=== PATIENT | female | born 1935 | race Caucasian/White ===

== ENCOUNTER 2020-03-08 12:01 | Inpatient (IN) | payer MEDICARE ==
[2020-03-08] MEDS ORDERED: Metoclopramide HCl 10 MG/2 ML VIAL ONE (12:40)
[2020-03-08] MEDS ORDERED: Ketorolac Tromethamine 30 MG/ML VIAL ONE (12:40)
[2020-03-08] MEDS ORDERED: Dexamethasone 10 MG/ML VIAL ONE (12:40)
[2020-03-08] MEDS ORDERED: Pantoprazole 40 MG VIAL ONE (13:19)
[2020-03-08 13:45] LABS: #Eosinphils 0.2 thou/uL (0.0-0.7); #Lymphocytes 0.8 thou/uL (1.20-3.40); #Monocytes 0.5 thou/uL (0.11-0.59); #Neutrophils 5.4 thou/uL (1.40-6.50); %Eosinophils 2.4 % (0.0-10.0); %Lymphocytes 11.8 % (21.0-51.0); %Monocytes 7.5 % (0.0-10.0); %Neutrophils 78.3 % (42.0-75.0); Hemoglobin 15.6 g/dL (12.0-16.0); Mean Corpuscular HGB CONC 34.5 g/dL (32.0-36.0); Mean Corpuscular Hemoglobin 33.4 pg (27.0-31.0); Mean Corpuscular Volume 96.7 fL (78.0-98.0); Mean Platelet Volume 8.5 fL (7.4-10.4); Platelet Count 164 thou/uL (130-400); RBC Distribution Width 12.2 % (11.5-14.5); Red Blood Cell (RBC) Count 4.67 mill/uL (4.20-5.40); White Blood Cell (WBC) Count 6.9 thou/uL (4.8-10.8)
--- NOTE | 2020-03-08 13:50 | CT ---
HEAD CT WITHOUT CONTRAST: Date: 03-08-2020 Comparison: None History: Persistent headache Technique: Axial CT imaging obtained at 5 mm intervals from the vertex to the skull base without cont rast. FINDINGS: There is a mass within the posterior fossa posteriorly on the left which is primarily isodense but de monstrates internal hyperdense components suggesting areas of calcification. This mass measures appro ximately 2.3 x 3.2 cm. It is felt to be extraaxial in nature. There is adjacent mass effect within th e left posterior fossa with slight anterior deformity and mass effect on the fourth ventricle. There is adjacent vasogenic edema within the left cerebellar hemisphere, the area of vasogenic edema adjace nt to this mass measuring approximately 2-3 cm. The imaged paranasal sinuses/mastoid air cells are well aerated. No displaced calvarial fracture. No intracranial hemorrhage. IMPRESSION: 1. Left posterior fossa mass with adjacent vasogenic edema and mass effect. This is felt to represent a posterior fossa meningioma. Neurosurgical consultation and MRI recommended. 2. Results called to Dr. Stone, 12:48 p.m. 03-08-2020. Code CR POS: LOLA
[2020-03-08 13:52] LABS: PTT 27.7 sec (22.9-36.1)
--- NOTE | 2020-03-08 14:03 | RAD ---
AP CHEST: History: Headache. Pre-operative. FINDINGS: Lung carmichael appear clear. No infiltrate or vascular congestion. Heart and mediastinum are unremarkabl e. IMPRESSION: No acute process. POS: AGW
[2020-03-08 14:08] LABS: ALT (SGPT) 33 U/L (8-55); AST (SGOT) 37 U/L (5-34); Albumin 4.2 g/dL (3.4-4.8); Alkaline Phosphatase 56 U/L (40-110); Anion Gap 13 mmol/L (10-20); BUN (Urea Nitrogen) 13 mg/dL (9.8-20.1); Bilirubin, Total 0.5 mg/dL (0.2-1.2); CK (CPK) 304 U/L (29-168); Calc. Creatinine Clearance 0 mL/min (70-130); Calcium 10.7 mg/dL (7.8-10.44); Carbon Dioxide 24 mmol/L (23-31); Chloride 98 mmol/L (98-107); Estimated GFR-MDRD 71; Globulin 2.9 g/dL (2.4-3.5); Glucose 124 mg/dL (83-110); Lipase 39 U/L (8-78); Potassium 4.4 mmol/L (3.5-5.1); Protein, Total 7.1 g/dL (6.0-8.3); Sodium 131 mmol/L (136-145)
[2020-03-08] MEDS ORDERED: Fentanyl 100 MCG/2 ML VIAL ONE (14:32)
[2020-03-08 14:39] LABS: Bilirubin Negative (Negative); Blood, Urine Negative (Negative); Clarity Clear (Clear); Glucose, Urine (Dipstick) Normal (Negative); Leukocyte Negative Leu/uL (Negative); Nitrite Negative (Negative); Protein, Urine (Dipstick) Negative (Neg-Trace); Urobilinogen Normal mg/dL (Less than 2)
[2020-03-08] MEDS ORDERED: Ondansetron PF 4 MG/2 ML Vial IVP PRN (16:41)
--- NOTE | 2020-03-08 17:49 | RAD ---
EXAM: XR Abdomen 2 View DATE: 03/08/2020 5:32 PM INDICATION: MRI clearance COMPARISON: None. FINDING: Numerous surgical clips are seen within the abdomen and pelvis. There is retained metallic shot within the soft tissues overlying the lower back and right gluteal region. Bowel gas pattern is unobstructed. No acute osseous abnormalities noted. IMPRESSION:No acute abnormality.
--- NOTE | 2020-03-08 19:31 | HP ---
CHIEF COMPLAINT: Headache. HISTORY OF PRESENT ILLNESS: The patient is an 84-year-old female, who had headache for the last couple of weeks, which started in her forehead and had some radiation to the left ear recently. She did not have any nausea, vomiting. She did not have any blurred or double vision. She denied any chest pain or shortness of breath. She noted some problem with balance going on for quite some time. PAST MEDICAL HISTORY: 1. Hyperparathyroidism. 2. Diverticulitis. 3. Ovarian cancer. PAST SURGICAL HISTORY: 1. Parathyroid removal. 2. Cholecystectomy. 3. Hysterectomy. SOCIAL HISTORY: She denies any alcohol use, cigarette smoking, or illicit drug use. FAMILY HISTORY: Father had heart attack at the age of 76 and mother lived over 100. ALLERGIES: NONE. MEDICATIONS: Pravastatin 80 mg once a day, metoprolol 50 mg once a day, multivitamin once a day, hydrochlorothiazide 12.5 mg once a day, biotin 7500 mcg once a day. REVIEW OF SYSTEMS: All 14 systems were reviewed and only positive symptoms mentioned in the HPI. PHYSICAL EXAMINATION: VITAL SIGNS: Blood pressure is 155/70, pulse is 71, respirations 16, O2 saturation is 98% on room air, temperature is 98.7, and pain is 4 to 5 after medications. HEENT: Head is atraumatic and normocephalic. Eyes are PERRLA. Sclerae are nonicteric. Oral mucosa is moist. NECK: Supple. LUNGS: Clear. HEART: S1, S2 normal. No S3. No S4. No any murmur. ABDOMEN: Soft, nontender, nondistended. Bowel sounds are present. No organomegaly. EXTREMITIES: No clubbing, cyanosis, or edema. NEUROLOGICAL EXAMINATION: She is alert and oriented x4. There is no any motor or sensory deficits. LABORATORY DATA: Labs showed white count of 6.9, hemoglobin 15.6, hematocrit 45.2, platelet count is 164,000. Sodium of 131, potassium 4.4, chloride 98, CO2 of 24, BUN 13, creatinine 0.78, glucose 124, calcium 10.7, AST 37, creatine kinase is 304. Normal urinalysis. Chest x-ray did not show any abnormalities. This was personally reviewed by me. CT of the brain personally reviewed by me showed left posterior fossa mass with adjacent vasogenic edema and mass effect. It is felt that this is posterior fossa meningioma. IMPRESSION: 1. Posterior fossa meningioma causing headaches. 2. History of hyperparathyroidism, status post surgical removal. 3. History of diverticulitis. 4. Hyponatremia, mild. 5. Hypercalcemia, most likely related to her previous hyperparathyroidism status. 6. Elevated creatine kinase of unclear etiology at this point. PLAN: Full admission to Stroke Unit. CONDITION: Fair. ACTIVITY: Bedrest and bathroom privileges. IV Hep-Lock. Neurosurgical consultation was done in the emergency room. The patient was giving fentanyl, Reglan, Protonix, and Decadron IV push and 500 mL of IV fluids. Also she received close observation before she was transferred to the Stroke Unit. Her diet is n.p.o. at this point because she is going to have surgery tomorrow morning and she will have p.r.n. medications for the pain tonight and further recommendation by Neurosurgical Team. She will have also DVT prophylaxis with SCDs. Job ID: [id number]
[2020-03-08 19:36] VITALS: BMI 22.8
--- NOTE | 2020-03-08 19:39 | CON ---
DATE OF CONSULTATION: HISTORY OF PRESENT ILLNESS: Warren is an 84-year-old female with 12 days of headache. She states that she is being treated for sinus infection with doxycycline 100 mg twice a day. She also states she has been treated with sumatriptan for migraines. She states nothing is helping her. She is very active. She walks 0.25 mile a day and she is very independent. Neurosurgery was called due to the brain CT that showed a left fossa mass with edema and mass effect. She is accompanied by her daughter. She is verbally responsive, fully oriented. She has spontaneous eye opening. She is fully oriented and obeys commands. She is moving both upper and lower extremities. She has good strength in her upper and lower extremities. She tells me that she is the only one in the family with any past medical history of cancer. She has been diagnosed with ovarian cancer. She has no known drug allergies. MEDICATIONS: 1. Flomax. 2. Doxycycline. 3. Sumatriptan. 4. Hydrochlorothiazide. 5. Metoprolol. PAST MEDICAL HISTORY: Diverticulitis, ovarian cancer, and hypertension. SOCIAL HISTORY: Lives at home. Denies any alcohol, illicit drugs, or tobacco use. FAMILY HISTORY: Mother of old age at 100. Father from an ID. She has 2 daughters and one son, both alive and well. REVIEW OF SYSTEMS: CONSTITUTIONAL: Denies fever or chills. EAR, NOSE, AND THROAT: Denies change in vision or hearing. CARDIAC: Denies chest pain, shortness of breath, or diaphoresis. PULMONARY: Denies shortness of breath, cough, or hemoptysis. GI: Denies abdominal pain, nausea, vomiting, diarrhea, or change in stool formation and consistency. : Denies trouble with urination, frequency of urination, or bloody urine. SKIN: Denies skin rash, bruising, bleeding, or skin masses. MUSCULOSKELETAL: As per history of present illness. NEUROLOGICAL: As per history of present illness. PSYCHOLOGICAL: As per history of present illness. PHYSICAL EXAMINATION: VITAL SIGNS: Blood pressure 144/56, heart rate 70, and respiratory rate 18. HEENT: Pupils are equal. Extraocular movements are intact. NECK: Soft and supple. No masses are noted. Range of motion is intact and nonpainful. NEUROLOGICAL: Awake, alert, and oriented x3. Memory, attention, fund of knowledge normal. Cranial nerves grossly intact. Upper extremity 5/5 strength in deltoids, biceps, triceps, wrist extension, finger extension, finger intrinsic. Sensation equal bilaterally. Reflexes symmetric. Lower extremity 5/5 strength in bilateral iliopsoas, quadriceps, hamstrings, anterior tib, EHL, and gastrocnemius. There is no area of dermatomal sensory loss. The reflexes are symmetric. The toes are downgoing. LABORATORY DATA: White blood cells 6.9 and platelets 164. INR is 1.0, PTT is 27.7. Sodium is 131. IMAGING STUDIES: Head CT, there is left posterior fossa mass with edema and mass effect. PLAN: Brain MRI with and without contrast with [facility] protocol tomorrow morning for a craniectomy with tumor resection. She will need clearance from the Medical Team. She will also need clearance from Anesthesia. We will get a.m. labs, CBC, PT, PTT. Consent was signed. INFORMED CONSENT: We discussed the indications, risks, benefits, alternatives, and expected results from surgery. The risks discussed included, but were not limited to, infection, bleeding, CSF leak, brain damage, significant loss of neurological function, seizure, stroke, dependency for normal care, cardiopulmonary complications of anesthesia or . Long-term complications discussed included, but were not limited to, recurrence, and future surgery. She understands the risks and is willing to proceed. Job ID: [id number]
--- NOTE | 2020-03-08 19:48 | MRI ---
MRI BRAIN WITH AND WITHOUT CONTRAST: Indications: Assess left posterior fossa mass. Correlation: CT scan performed earlier today which showed a left posterior fossa mass. FINDINGS: There is a dural based mass in the posterior left posterior fossa which appears extraaxial. This calc ification is seen within this mass on CT. There is surrounding vasogenic edema. This mass shows enhan cement and measures 3.2 x 2.6 cm in the axial plane. It does produce mild mass effect on the fourth v entricle. There is dural tail with this dural based mass and the mass is isointense on noncontrast T1 . It is most consistent with a posterior fossa meningioma. No other abnormal enhancement. No evidence of restricted diffusion or acute infarct. Mild chronic ischemic white matter changes. IMPRESSION: Enhancing dural based extraaxial mass in the posterior fossa posteriorly on the left with surrounding vasogenic edema and mild mass effect. Findings are consistent with meningioma which could arise from the posterior dural surface or the adjacent tentorium. This mass abuts both the posterior dura and t he tentorium on the right. POS: AGW
--- NOTE | 2020-03-08 21:27 | PRG ---
DATE OF SERVICE: 03/08/2020 I personally interviewed and examined the patient, agreed with documentation of the Logan POWELL dated 02/29/2020. Briefly, Ann Kelley is an 84-year-old woman with progressively worsening headache and nausea and vomiting for the past couple of weeks, who eventually reported to the emergency department, where CT examination of brain revealed a posterior fossa mass. MR imaging has been done showing a nearly uniformly contrast-enhancing mass over the left cerebellum all the way up to the tentorium causing some local mass effect and T2 signal change in the left hemisphere of the cerebellum. There is no hydrocephalus. Neurosurgery was consulted and arrangements have already been made to proceed with surgical intervention tomorrow should the patient agree. I visited with Ms. Kelley and she has extreme longevity in her family. She is a very active 84-year-old woman and wants to continue her activity. In spite of her history of ovarian cancer 11 years ago, I think this is most a likely meningioma. I have recommended removal rather than radiation, although radiation could be considered. She listened to the two options attentively and decided for surgical intervention and wants to proceed as soon as possible. Informed consent: I discussed indications, risks, benefits, and alternatives to the suboccipital craniectomy with removal of the meningioma. The risks we discussed included, but were not limited to, bleeding, infection, CSF leak, damage to the brain, paralysis, coma, locked-in syndrome, permanent neurological deficit, and . She understands all the risks, but wants to proceed. We will make arrangements for this to happen tomorrow. (15 minutes). Job ID: [id number]
[2020-03-09 04:58] LABS: Hemoglobin 14.2 g/dL (12.0-16.0); Mean Corpuscular Hemoglobin 34.6 pg (27.0-31.0); Mean Platelet Volume 8.8 fL (7.4-10.4); Platelet Count 165 thou/uL (130-400); RBC Distribution Width 12.3 % (11.5-14.5); White Blood Cell (WBC) Count 10.7 thou/uL (4.8-10.8)
[2020-03-09 05:04] LABS: PTT 28.2 sec (22.9-36.1); Prothrombin Time 13.1 sec (12.0-14.7)
[2020-03-09] MEDS ORDERED: Lidocaine 0.5%/Epinephrine 1:200,000 50 ml Vial ONE (06:12)
[2020-03-09] MEDS ORDERED: Thrombin 5000 UNITS/5 ML VIAL ONE (06:12)
[2020-03-09] MEDS ORDERED: Bacitracin Zinc Ointment 30 gm TUBE ONE (06:12)
[2020-03-09] MEDS ORDERED: Prevnar 13-Val Conj/PF 0.5 ML SYRINGE IM ONE (06:30)
[2020-03-09] MEDS ORDERED: Fentanyl 100 MCG/2 ML VIAL ONE ×4 (06:39→12:09)
[2020-03-09] MEDS ORDERED: Midazolam HCl 2 mg/2 ml Vial ONE (06:39)
[2020-03-09] MEDS ORDERED: Famotidine/PF 20 mg/2ml Vial ONE (06:40)
[2020-03-09] MEDS ORDERED: Phenylephrine 10 MG/ML VIAL ONE (08:49)
[2020-03-09] MEDS ORDERED: HYDROmorphone 2 MG/ML VIAL SLOW IVP PRN ×2 (09:24→13:38)
[2020-03-09] MEDS ORDERED: Promethazine HCl 25 MG/ML VIAL IM PRN ×2 (09:24→13:38)
[2020-03-09] MEDS ORDERED: Promethazine HCl 25 MG/ML VIAL SLOW IVP PRN ×2 (09:24→13:38)
[2020-03-09] MEDS ORDERED: Meperidine HCl/PF 25 MG/ML VIAL SLOW IVP PRN ×2 (09:24→13:38)
--- NOTE | 2020-03-09 12:02 | EKG ---
Test Reason : Blood Pressure : / mmHG Vent. Rate : 067 BPM Atrial Rate : 067 BPM P-R Int : 190 ms QRS Dur : 084 ms QT Int : 398 ms P-R-T Axes : 089 020 033 degrees QTc Int : 420 ms Normal sinus rhythm Septal infarct , age undetermined Abnormal ECG Confirmed by CLAIR COLEMAN, ZULEIKA (12), mapping editor ELICEO ODONNELL ([id number]) on 03/09/2020 12:02:09 PM Referred By: Confirmed By:ZULEIKA SELF MD
[2020-03-09] MEDS ORDERED: PROPOFOL 200 MG/20 ML VIAL ONE (12:11)
[2020-03-09] MEDS ORDERED: Rocuronium Bromide 10 MG/ML (10ML VIAL) ONE (12:11)
[2020-03-09] MEDS ORDERED: Dexamethasone 20 MG/5 ML VIAL ONE (12:11)
[2020-03-09] MEDS ORDERED: PHENYLEPHRINE-NS 100 MCG/ML 10 ML SYRINGE ONE (12:11)
[2020-03-09] MEDS ORDERED: Ondansetron PF 4 MG/2 ML Vial ONE (12:11)
[2020-03-09] MEDS ORDERED: Lidocaine 1% PF 5 ML VIAL ONE (12:11)
[2020-03-09] MEDS ORDERED: SUGAMMADEX SODIUM 200 MG/2 ML VIAL ONE (12:54)
[2020-03-09] MEDS ORDERED: Furosemide 20 MG/2 ML VIAL ONE (12:59)
[2020-03-09] MEDS ORDERED: Mag-Al 1200 mg/1200 mg/30 ML UDCUP PO PRN (13:21)
[2020-03-09] MEDS ORDERED: diphenhydrAMINE 50 MG CAP PO PRN (13:21)
[2020-03-09] MEDS ORDERED: Labetalol HCl 100 MG/20 ML VIAL SLOW IVP PRN (13:21)
[2020-03-09] MEDS ORDERED: hydrALAZINE 20 MG/ML VIAL SLOW IVP PRN (13:21)
[2020-03-09] MEDS ORDERED: Ondansetron HCl/PF 4 MG/2 ML Vial IVP PRN (13:38)
[2020-03-09] MEDS ORDERED: hydrALAZINE 20 MG/ML VIAL ONE (13:47)
[2020-03-09] MEDS ORDERED: CEFAZOLIN 2 GM in Premix Bag 1 BAG IVPB SCH (14:00)
--- NOTE | 2020-03-09 15:17 | PDOC.HOSPP ---
- Subjective Encounter Date: 03/09/20 Encounter Time: 15:16 Subjective: Pt seen for followup re: meningioma. Had surgery, tired. - Objective Vital Signs & Weight: Vital Signs (12 hours) Temp Pulse Resp BP Pulse Ox 03/09/20 04:00 97.8 F 74 16 135/62 94 L Weight Weight 137 lb Result Diagrams: 03/09/20 04:36 03/08/20 13:30 Additional Labs: Accuchecks 03/09/20 03/09/20 10:58 08:30 POC Glucose 163 H 159 H Labs and MARs reviewed by me EKG Reviewed by me: Yes (Tele: NSR) Hospitalist ROS - Review of Systems Cardiovascular: denies: chest pain, palpitations, orthopnea, paroxysmal noc. dyspnea, edema, light headedness Gastrointestinal: denies: nausea, vomiting, abdominal pain, diarrhea, constipation, melena, hematochezia - Exam General Appearance: awake alert Eye: anicteric sclera ENT: moist mucosa Neck: supple Heart: RRR Respiratory: CTAB Gastrointestinal: soft, non-tender Psychiatric: normal affect, normal behavior Hosp A/P (1) Hyponatremia Code(s): E87.1 - HYPO-OSMOLALITY AND HYPONATREMIA Status: Acute (2) Meningioma Code(s): D32.9 - BENIGN NEOPLASM OF MENINGES, UNSPECIFIED Status: Chronic (3) HTN (hypertension) Code(s): I10 - ESSENTIAL (PRIMARY) HYPERTENSION Status: Chronic (4) Dyslipidemia Code(s): E78.5 - HYPERLIPIDEMIA, UNSPECIFIED Status: Chronic - Plan Hyponatremia mild, likely asymptomatic. Recheck lytes. s/p surgery foir meningioma today Resume beta italo and HCTZ Resume statin
[2020-03-09] MEDS: traMADol HCl 50 MG TAB PO PRN (15:56)
[2020-03-09] MEDS: Sodium Chloride 0.9% 1,000 ML IV SCH (16:20)
[2020-03-09] MEDS: CEFAZOLIN 2 GM in Premix Bag 1 BAG IVPB SCH (16:24)
[2020-03-09] MEDS: Atorvastatin Calcium 20 MG TAB PO SCH (19:55)
--- NOTE | 2020-03-09 20:35 | OP ---
DATE OF PROCEDURE: 03/09/2020 RUCHING MACHINE OPERATOR: Harshad Ford PA-C PREOPERATIVE INDICATION: Prevent neurological deterioration. PREOPERATIVE DIAGNOSIS: Dural-based lesion, posterior fossa with mass effect, likely meningioma. POSTOPERATIVE DIAGNOSIS: Dural-based lesion, posterior fossa with mass effect, likely meningioma. PROCEDURE PERFORMED: Decompressive suboccipital craniectomy, microsurgical resection of posterior fossa meningioma, dural repair with patch graft, operating microscope. PREOPERATIVE MEDICATION: Ancef 2 g IV. DRAIN NUMBER: Zero. DRAIN TYPE: None. DESCRIPTION OF PROCEDURE: The patient was brought to the operating room. General endotracheal anesthesia was induced. A [place] timothy head grinder was attached to the patient's head. The patient was carefully positioned prone on the operating table with her chest and hips supported by gel-filled chest rolls. The head was immobilized in [place] attachment for the operating table. The neck was flexed slightly. Hair was removed from the back of the head with electric clippers. We planned a midline incision from over the inion down to C3. Under a planned incision, we infused local anesthetic. The back of the neck was sterilely prepped and draped. We opened our midline incision with a 10 blade knife and controlled bleeding with bipolar and monopolar cautery. We used monopolar cautery to dissect through the ligamentum nuchae all the way down to the spinous process of C2, the arch of C1, and the suboccipital bone. We widened our exposure by staying in the subperiosteal plane on each of these bones and placed a self-retaining retractor. Finally, we had enough lateral retraction and we could place eliane holes in this suboccipital area. A high-speed drill with the perforating bit was brought into the field and placed one eliane hole on either side. We stripped the dura off the undersurface of the bone with a [place] #3 dissector and removed suboccipital bone with [place], Leksell, Adson, Stille rongeurs. At the completion of her craniectomy, we had wide decompression of the posterior fossa. Dura was eaten away by tumor on the left side over the cerebral hemisphere all the way up to the transverse sinus. Tumor tissue was obvious throughout that area. We opened the dura in a V-shaped fashion with a small "V" over the right cerebral hemisphere and a larger over the left heading towards the tumor. We created a plane between tumor and dura on the ventral surface, where there was intact dura. There were some areas in the superior lateral corner of the tumor, where the dura was not particularly competent. The tumor had narrowed or occluded the transverse sinus. We tacked up the dural flap and then brought the microscope into the field. Under microscopic magnification using microsurgical techniques, we carefully developed the plane between the brain parenchyma and the tumor itself. Tumor was dense and fibrous. Samples were sent for frozen pathology and found to be consistent with meningioma. We continued our dissection and tumor resection by amputating the inferior half of the tumor. We then folded the superior half down into the cavity we had created. There was one venous detachment superiorly that was tenuous, but it was saved. The tumor then could easily be dissected free of the parenchyma of the cerebellum. We irrigated the resection cavity. There was no obvious tumor in the cerebellum whatsoever. There was tumor on the anterior surface of the transverse sinus and the tentorium above it and dura below it. The remaining thin rim of tumor cells was coagulated aggressively with bipolar cautery. We coagulated in all directions all the way to normal dura. There was not a section of the visible tumor that went without coagulation. We irrigated with bacitracin irrigation. There was no transverse sinus bleeding. We brought a dural patch into the field. A bovine pericardial patch was cut to fit the dural defect and sewn in place with a running Prolene suture. We irrigated with bacitracin irrigation and reinforced our closure with DuraSeal tissue sealant. We closed the wound in anatomical layers in a watertight fashion. We applied a sterile dressing. This was a clean case, no contamination. Job ID: [id number]
[2020-03-10] MEDS: Sodium Chloride 0.9% 1,000 ML IV SCH ×2 (00:36→13:51)
[2020-03-10] MEDS: CEFAZOLIN 2 GM in Premix Bag 1 BAG IVPB SCH (00:38)
[2020-03-10] MEDS: traMADol HCl 50 MG TAB PO PRN ×5 (03:06→22:18)
[2020-03-10 04:01] LABS: Anion Gap 11 mmol/L (10-20); BUN (Urea Nitrogen) 15 mg/dL (9.8-20.1); Calc. Creatinine Clearance 55 mL/min (70-130); Calcium 10.2 mg/dL (7.8-10.44); Carbon Dioxide 27 mmol/L (23-31); Chloride 98 mmol/L (98-107); Estimated GFR-MDRD 72; Glucose 137 mg/dL (83-110); Potassium 4.2 mmol/L (3.5-5.1); Sodium 132 mmol/L (136-145)
[2020-03-10 04:04] LABS: Band 13 % (5-11); Lymphocytes 7 % (21-51); MDiff Complete? YES; Mean Corpuscular HGB CONC 34.1 g/dL (32.0-36.0); Mean Corpuscular Hemoglobin 33.3 pg (27.0-31.0); Mean Corpuscular Volume 97.6 fL (78.0-98.0); Mean Platelet Volume 8.3 fL (7.4-10.4); Monocytes 5 % (0-10); Neutrophil 75 % (42-75); Platelet Count 199 thou/uL (130-400); Platelet Morphology Comment Appears Adequate; RBC Distribution Width 12.6 % (11.5-14.5); White Blood Cell (WBC) Count 20.5 thou/uL (4.8-10.8)
--- NOTE | 2020-03-10 07:26 | CT ---
PRELIMINARY REPORT/[facility]/EMERGENCY AFTER HOURS PROCEDURE: EXAM: CT Head Without Intravenous Contrast. CLINICAL HISTORY: S/P CRANIOTOMY. TECHNIQUE: Axial computed tomography images of the head/brain without intravenous contrast. COMPARISON: CT\ID\SR - CT BRAIN WO CON - 03/08/2020 12:41 PM CDT FINDINGS: BRAIN: Since the prior examination, the patient has undergone left occipital craniectomy and resection of le ft cerebellar hemispheric mass. There is some encephalomalacia at the resection bed, and there is a small volume of pneumocephalus. Stable, mild, diffuse cerebral atrophy. There are a few, scattered, subcortical and deep white matter hypodensities which are nonspecific but which statistically most likely reflect changes of chronic small vessel ischemic disease, not signif icantly changed. ORBITS: The orbits are unremarkable. SINUSES AND MASTOIDS: The paranasal sinuses and mastoid air cells are unremarkable. BONES: No acute skull fracture. IMPRESSION: 1. Since the prior examination, the patient has undergone left occipital craniectomy and resection of left cerebellar hemispheric mass. 2. There is some encephalomalacia at the resection bed, and there is a small volume of pneumocephalus . 3. Stable, mild, diffuse cerebral atrophy. 4. There are a few, scattered, subcortical and deep white matter hypodensities which are nonspecific but which statistically most likely reflect changes of chronic small vessel ischemic disease, not sig nificantly changed. ELECTRONICALLY SIGNED BY: Malachi Box MD Mar 10, 2020 3:17:00 AM CDT This report is intended for review by the ordering physician only, in accordance of law. If you recei ve this report in error, please call [facility] at [phone]. FINAL REPORT EMERGENCY AFTER HOURS CT BRAIN WITHOUT CONTRAST: Date: 03/10/2020 COMPARISON: 03/08/2020. FINDINGS/IMPRESSION: I agree with the findings and impression given in the preliminary report per [facility] physici an. There are interval postsurgical changes in the posterior fossa for resection of posterior fossa mass. Expected pneumocephalus is seen. No midline shift or downward herniation are present. POS: EAA
--- NOTE | 2020-03-10 08:01 | PRG ---
DATE OF SERVICE: 03/10/2020 I saw Ms. Kelley in the ICU this morning. Her head is sore and she is nauseated from her posterior fossa surgery, but otherwise she is feeling well. Her blood pressures have been in the 140s to 150s. I do not see fevers recorded. There is no lateralizing motor or sensory deficits. There is some dysmetria on the left side. CT scan was ordered for this morning, which looks good. If there is any residual tumor, it is very minimal. I suspect she had a posterior fossa meningioma resected yesterday. I think she is doing well enough to move from ICU care to floor care. She will need some physical therapy and once she is stable on her feet, her Bran can be removed. If she is safe for activities of daily living as early as tomorrow, she can be discharged. If she needs extra help, then rehab placement could be considered. She will need help with pain control. Job ID: [id number] MTDD
[2020-03-10] MEDS ORDERED: Hydrochlorothiazide 25 MG TAB PO SCH (09:00)
[2020-03-10] MEDS ORDERED: Acetaminophen/Codeine 30-300mg Tablet PO PRN (17:41)
--- NOTE | 2020-03-10 17:44 | PDOC.HOSPP ---
- Subjective Encounter Date: 03/10/20 Encounter Time: 10:40 Subjective: Pt seen for followup for hyponatremia. Pt feels better, denies any complaints. - Objective Vital Signs & Weight: Vital Signs (12 hours) Temp Pulse Pulse Pulse Resp BP BP 03/10/20 15:51 97.7 F 81 16 03/10/20 12:19 67 164/63 H 03/10/20 12:02 98.3 F 67 20 03/10/20 09:45 82 73 159/62 H 03/10/20 08:00 97.8 F BP BP Pulse Ox Pulse Ox Pulse Ox 03/10/20 15:51 152/69 H 94 L 03/10/20 12:19 03/10/20 12:02 164/63 H 95 03/10/20 09:45 152/59 H 100 96 03/10/20 08:00 98 Weight Weight 137 lb Most Recent Monitor Data Heart Rate from ECG 69 NIBP 153/56 NIBP BP-Mean 88 Respiration from ECG 12 SpO2 100 I&O: 03/09/20 03/10/20 03/11/20 06:59 06:59 06:59 Intake Total 1805 520 Output Total 777 165 Balance 1028 355 Result Diagrams: 03/10/20 03:25 03/10/20 03:25 Additional Labs: Labs and MARs reviewed by me EKG Reviewed by me: Yes (Tele: NSR) Hospitalist ROS - Review of Systems Constitutional: denies: fever, chills, sweats, weakness, malaise Cardiovascular: denies: chest pain, palpitations, edema, light headedness Skin: denies: rash, lesions, dianelys - Medication Medications: Active Medications Generic Name Dose Route Start Last Admin Trade Name Freq PRN Reason Stop Dose Admin Atorvastatin Calcium 20 mg 03/09/20 21:00 03/09/20 19:55 Lipitor PO 20 mg HS RATNA Administration Hydralazine HCl 5 mg 03/09/20 13:21 03/10/20 12:19 Apresoline SLOW IVP 5 mg Q15MIN PRN Administration SBP > 160 mmHg Hydrochlorothiazide 12.5 mg 03/10/20 09:00 03/10/20 08:27 Hydrochlorothiazide PO 12.5 mg DAILY RATNA Administration Metoprolol Succinate 50 mg 03/10/20 09:00 03/10/20 08:27 Toprol Xl PO 50 mg DAILY RATNA Administration Sodium Chloride 10 ml 03/09/20 09:00 03/10/20 08:32 Flush - Normal Saline IVF 10 ml Q12HR RATNA Administration Tramadol HCl 100 mg 03/08/20 16:52 03/10/20 13:53 Ultram PO 100 mg Q4H PRN Administration Pain - Exam General Appearance: awake alert Eye: anicteric sclera ENT: moist mucosa Neck: supple Heart: RRR, no rubs Respiratory: CTAB Gastrointestinal: soft, non-tender Extremities: no cyanosis Psychiatric: normal affect, normal behavior Hosp A/P (1) Hyponatremia Code(s): E87.1 - HYPO-OSMOLALITY AND HYPONATREMIA Status: Acute (2) Meningioma Code(s): D32.9 - BENIGN NEOPLASM OF MENINGES, UNSPECIFIED Status: Chronic (3) HTN (hypertension) Code(s): I10 - ESSENTIAL (PRIMARY) HYPERTENSION Status: Chronic (4) Dyslipidemia Code(s): E78.5 - HYPERLIPIDEMIA, UNSPECIFIED Status: Chronic - Plan Sodium improved to 132. s/p surgery for meningioma yesterday, clinically improving Continue beta italo and discontinue HCTZ (hyponatremia). Add amlodipine. Continue statin
[2020-03-10] MEDS ORDERED: Amlodipine 5 MG TAB PO SCH (18:00)
[2020-03-10] MEDS: Atorvastatin Calcium 20 MG TAB PO SCH (20:48)
[2020-03-11 04:47] LABS: #Eosinphils 0.1 thou/uL (0.0-0.7); #Lymphocytes 0.8 thou/uL (1.20-3.40); #Monocytes 1.4 thou/uL (0.11-0.59); #Neutrophils 13.8 thou/uL (1.40-6.50); %Basophils 0.2 % (0.0-1.0); %Eosinophils 0.5 % (0.0-10.0); %Lymphocytes 5.2 % (21.0-51.0); %Monocytes 8.6 % (0.0-10.0); %Neutrophils 85.6 % (42.0-75.0); Hemoglobin 13.6 g/dL (12.0-16.0); Mean Corpuscular HGB CONC 34.7 g/dL (32.0-36.0); Mean Platelet Volume 8.4 fL (7.4-10.4); Platelet Count 173 thou/uL (130-400); RBC Distribution Width 12.4 % (11.5-14.5); Red Blood Cell (RBC) Count 4.01 mill/uL (4.20-5.40); White Blood Cell (WBC) Count 16.1 thou/uL (4.8-10.8)
[2020-03-11 05:11] LABS: Anion Gap 9 mmol/L (10-20); BUN (Urea Nitrogen) 12 mg/dL (9.8-20.1); Calc. Creatinine Clearance 71 mL/min (70-130); Calcium 9.6 mg/dL (7.8-10.44); Carbon Dioxide 30 mmol/L (23-31); Chloride 91 mmol/L (98-107); Estimated GFR-MDRD Greater than 90; Glucose 146 mg/dL (83-110); Potassium 4.1 mmol/L (3.5-5.1); Sodium 126 mmol/L (136-145)
[2020-03-11] MEDS: traMADol HCl 50 MG TAB PO PRN (06:35)
--- NOTE | 2020-03-11 08:34 | PRG ---
DATE OF SERVICE: 03/11/2020 I saw Ms. Kelley this morning. She is 2 days out from a suboccipital craniectomy with tumor resection. She is doing remarkably well. At 84 years old, she came through the surgery very nicely. She has very slight if any dysmetria. She was up yesterday walking to the bathroom with physical therapy. If Ms. Kelley continues to progress at this rate, she will be ready for discharge soon. If she needs inpatient rehabilitation, that can be arranged, but I think that discharge home is in her future. This could be as early as this afternoon or tomorrow morning. Job ID: [id number]
[2020-03-11] MEDS ORDERED: Amlodipine 5 MG TAB PO SCH ×2 (09:00→22:30)
--- NOTE | 2020-03-11 17:02 | PDOC.HOSPP ---
- Subjective Encounter Date: 03/11/20 Encounter Time: 10:00 Subjective: Pt seen for followup re: hyponatremia. Feels better today. - Objective Vital Signs & Weight: Vital Signs (12 hours) Temp Pulse Pulse Pulse Resp BP BP 03/11/20 15:36 98.0 F 65 18 03/11/20 15:14 159/68 H 160/68 H 03/11/20 11:00 97.9 F 68 18 03/11/20 09:26 70 65 154/65 H 168/64 H 03/11/20 08:50 65 03/11/20 07:10 98.9 F 65 20 BP Pulse Ox 03/11/20 15:36 158/66 H 95 03/11/20 15:14 03/11/20 11:00 153/71 H 95 03/11/20 09:26 03/11/20 08:50 03/11/20 07:10 168/68 H 96 Weight Weight 137 lb Most Recent Monitor Data Heart Rate from ECG 69 NIBP 153/56 NIBP BP-Mean 88 Respiration from ECG 12 SpO2 100 I&O: 03/10/20 03/11/20 03/12/20 06:59 06:59 06:59 Intake Total 1805 1132 600 Output Total 777 2640 Balance 1028 -1508 600 Result Diagrams: 03/11/20 04:20 03/11/20 04:20 Additional Labs: Labs and MARs reviewed by me EKG Reviewed by me: Yes (Tele: NSR) Hospitalist ROS - Review of Systems Cardiovascular: denies: chest pain, palpitations, orthopnea, paroxysmal noc. dyspnea, edema, light headedness Gastrointestinal: denies: nausea, vomiting, diarrhea, constipation, melena, hematochezia - Medication Medications: Active Medications Generic Name Dose Route Start Last Admin Trade Name Freq PRN Reason Stop Dose Admin Acetaminophen/Codeine Phosphate 1 tab 03/10/20 17:41 03/11/20 15:45 Tylenol #3 PO 1 tab Q6H PRN Administration Moderate Pain (4-6) Amlodipine Besylate 5 mg 03/11/20 09:00 03/11/20 08:50 Norvasc PO 5 mg DAILY RATNA Administration Atorvastatin Calcium 20 mg 03/09/20 21:00 03/10/20 20:48 Lipitor PO 20 mg HS RATNA Administration Hydralazine HCl 5 mg 03/09/20 13:21 03/10/20 12:19 Apresoline SLOW IVP 5 mg Q15MIN PRN Administration SBP > 160 mmHg Metoprolol Succinate 50 mg 03/10/20 09:00 03/11/20 08:50 Toprol Xl PO 50 mg DAILY RATNA Administration Ondansetron HCl 4 mg 03/08/20 16:41 03/10/20 23:40 Zofran IVP 4 mg Q6H PRN Administration Nausea/Vomiting Sodium Chloride 10 ml 03/09/20 09:00 03/11/20 08:50 Flush - Normal Saline IVF 10 ml Q12HR RATNA Administration Sodium Chloride 10 ml 03/09/20 13:21 03/10/20 23:40 Flush - Normal Saline IVF 10 ml PRN PRN Administration Saline Flush Tramadol HCl 100 mg 03/08/20 16:52 03/11/20 06:35 Ultram PO 100 mg Q4H PRN Administration Severe Pain (7-10) - Exam General Appearance: awake alert Eye: anicteric sclera ENT: moist mucosa Neck: supple Heart: RRR Respiratory: CTAB Gastrointestinal: soft, non-tender Extremities: no cyanosis Musculoskeletal: normal tone, normal strength Psychiatric: normal affect, normal behavior Hosp A/P (1) Hyponatremia Code(s): E87.1 - HYPO-OSMOLALITY AND HYPONATREMIA Status: Acute (2) Meningioma Code(s): D32.9 - BENIGN NEOPLASM OF MENINGES, UNSPECIFIED Status: Chronic (3) HTN (hypertension) Code(s): I10 - ESSENTIAL (PRIMARY) HYPERTENSION Status: Chronic (4) Dyslipidemia Code(s): E78.5 - HYPERLIPIDEMIA, UNSPECIFIED Status: Chronic - Plan Sodium worse, 126 today. s/p surgery for meningioma, clinically improving Continue beta blockerand amlodipine. Continue statin
[2020-03-11] MEDS: Atorvastatin Calcium 20 MG TAB PO SCH (20:55)
--- NOTE | 2020-03-11 23:02 | CON ---
DATE OF CONSULTATION: 03/11/2020 SERVICE: Nephrology. REASON FOR CONSULTATION: Worsening hyponatremia. REQUESTING PHYSICIAN: Harshad Mars MD CHIEF COMPLAINT: Headache. HISTORY OF PRESENT ILLNESS: An 84-year-old female with prior history significant for hyperparathyroidism status post parathyroidectomy, amongst others, who presented to the hospital and was admitted on March 08 due to worsening headache with radiation to the left ear. There was also associated equilibrium and balance problems. 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 Neurosurgery consult was obtained and the patient subsequently had a resection of meningioma on March 09. The patient on presentation was noted to have hyponatremia, which progressively worsened since hospitalization to a randy of 126, hence Nephrology consult. The patient prior to hospitalization also was on thiazide diuretic, which has been discontinued, but sodium continued to trend down once. Headache has subsided post surgery and the patient denied dizziness, nausea, vomiting, fever, chills, rigor, abdominal pain, double vision, or change in visual acuity. PAST MEDICAL HISTORY: 1. Hyperparathyroidism. 2. Diverticulosis. 3. Ovarian cancer. 4. Hypertension. 5. Hyperlipidemia. PAST SURGICAL HISTORY: 1. Parathyroidectomy. 2. Cholecystectomy. 3. Hysterectomy. FAMILY HISTORY: Significant for heart attack in father at the age of 76. SOCIAL HISTORY: The patient lives with family. Denied alcohol use, tobacco, or recreational drug use. ALLERGIES: NO KNOWN DRUG ALLERGIES REPORTED. PRIOR TO HOSPITAL MEDICATIONS: 1. Ascorbic acid 1000 mg p.o. daily. 2. Biotin 7500 mcg p.o. daily. 3. Cholecalciferol 1000 units p.o. daily. 4. Cranberry Fruit Concentrate p.o. daily. 5. Hydrochlorothiazide 12.5 mg p.o. daily. 6. Metoprolol 50 mg p.o. daily. 7. Multivitamin with iron, folic acid and lutein one tablet daily. 8. Pravastatin 80 mg p.o. daily at bedtime. REVIEW OF SYSTEMS: 12-point review of system was unremarkable other than pertinent positives and negatives included in the history of present illness. PHYSICAL EXAMINATION: VITAL SIGNS: Temperature 97.8, pulse 66, respiratory rate 16, SpO2 of 95% on room air, blood pressure is 168/72. I and O in the last 24 hours showed total intake of 1132 with total output of 2640. GENERAL: Comfortable elderly female, healthy-looking, in no obvious distress. Afebrile. Anicteric. Acyanotic. HEENT: Normocephalic. Occipital and posterior neck dressing noted. Oral mucosa is dry. NECK: decreased range of motion. Posterior neck dressing noted. No JVD appreciated. CARDIOVASCULAR: Regular rhythm and rate with normal heart sounds 1 and 2. RESPIRATORY: Fair air entry bilaterally with no use of accessory muscles. GI: Full, soft, nontender, nondistended with normal bowel sounds. MUSCULOSKELETAL: Extremities are grossly normal-looking, atraumatic with no obvious erythema or edema. SKIN: No rash appreciated. Skin turgor however is decreased and skin look dry. 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 Cranial nerves 2 through 12 are grossly intact. The patient moves all extremities. DIAGNOSTIC DATA: CBC showed WBC count of 16.1, hemoglobin of 13.6, platelet of 173. Chemistry earlier today showed sodium 126, potassium 4.1, chloride 91, CO2 of 30, BUN 12, creatinine 0.6, glucose 146, and calcium 9.6. Note that on presentation, sodium was 131 and currently it is 126. CO2 on presentation was 26 and is currently 30. ASSESSMENT: 1. Hyponatremia: This is concerning for syndrome of inappropriate antidiuretic hormone secretion given that the patient is on thiazide diuretic and also had brain tumor for which she had resection recently. The patient denied excessive free water intake. However, perioperative ADH secretion and use of IV fluid can exacerbate the patient with predisposition to syndrome of inappropriate antidiuretic hormone secretion, especially in somebody on thiazide diuretic. 2. 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 3. Possible volume contraction given the worsening alkalosis and the patient looks dry clinically. Component of appropriate ADH secretion in a patient with volume contraction cannot be ruled out at this time. 4. Hypertension: Control is suboptimal. The patient received 5 mg of amlodipine in the morning. 5. Hyperkalemia, mild: Most likely related to dehydration, has improved. PLAN: 1. We will get serum osmolality as well as urine osmolality and urine sodium. 2. We will start free water restriction to 1 L per 24 hours. 3. We will also give additional 5 mg of amlodipine to get better BP control. 4. We will recheck plasma sodium in the morning. Further treatment to follow depending on hospital course. Many thanks for involving us in the care of this patient. We will follow along with you. Job ID: [id number]
[2020-03-12 05:33] LABS: #Eosinphils 0.1 thou/uL (0.0-0.7); #Lymphocytes 0.9 thou/uL (1.20-3.40); #Monocytes 1.1 thou/uL (0.11-0.59); #Neutrophils 11.6 thou/uL (1.40-6.50); %Basophils 0.2 % (0.0-1.0); %Eosinophils 0.5 % (0.0-10.0); %Lymphocytes 6.3 % (21.0-51.0); %Monocytes 8.3 % (0.0-10.0); %Neutrophils 84.8 % (42.0-75.0); Mean Corpuscular HGB CONC 33.9 g/dL (32.0-36.0); Mean Corpuscular Hemoglobin 33.1 pg (27.0-31.0); Mean Corpuscular Volume 97.7 fL (78.0-98.0); Mean Platelet Volume 8.2 fL (7.4-10.4); Platelet Count 175 thou/uL (130-400); RBC Distribution Width 12.1 % (11.5-14.5); Red Blood Cell (RBC) Count 4.21 mill/uL (4.20-5.40); White Blood Cell (WBC) Count 13.7 thou/uL (4.8-10.8)
[2020-03-12 05:51] LABS: Anion Gap 10 mmol/L (10-20); BUN (Urea Nitrogen) 11 mg/dL (9.8-20.1); Calc. Creatinine Clearance 69 mL/min (70-130); Calcium 9.7 mg/dL (7.8-10.44); Carbon Dioxide 29 mmol/L (23-31); Chloride 90 mmol/L (98-107); Estimated GFR-MDRD Greater than 90; Glucose 142 mg/dL (83-110); Potassium 4.1 mmol/L (3.5-5.1); Sodium 125 mmol/L (136-145)
[2020-03-12] MEDS ORDERED: Amlodipine 5 MG TAB PO SCH (06:43)
--- NOTE | 2020-03-12 07:23 | PRG ---
DATE OF SERVICE: 03/12/2020 Ms. Kelley is 3 days out from suboccipital craniectomy and tumor resection. She has done very well. She was up yesterday walking in the halls with physical therapy, but needed to keep her hand on the railing to assure herself of balance. The vitals are stable and her neurological examination is as well. Ms. Kelley would benefit from inpatient rehabilitation. Transfer there could be done any time. Job ID: [id number]
[2020-03-12] MEDS ORDERED: Amlodipine 10 MG TAB PO SCH (09:00)
[2020-03-12] MEDS: Sodium Chloride 1 GM TAB PO SCH ×2 (09:18→14:54)
--- NOTE | 2020-03-12 13:17 | PRG ---
DATE OF SERVICE: 03/12/2020 SERVICE: Nephrology. SUBJECTIVE: An 84-year-old female, status post posterior occipital craniotomy with resection of meningioma. Nephrology is seeing the patient for worsening hyponatremia. Headache has subsided. The patient denied nausea or vomiting. Oral intake and appetite are satisfactory. No dysuria, hematuria, abdominal pain, or fever. The patient walked with Physical Therapy and reported that her balance has improved. OBJECTIVE: VITAL SIGNS: Temperature 98.2, pulse 77, respiratory rate 20, SpO2 of 95% on room air, blood pressure is 148/63. I and O in the last 24 hours show total intake of 730 with an output of 350. GENERAL: Comfortable, healthy-looking elderly female, in no distress. Afebrile. Anicteric. Acyanotic. HEENT: Normocephalic. Posterior occipital dressing noted. NECK: Stiff with decreased range of motion. Posterior neck dressing noted. CARDIOVASCULAR: Regular rhythm and rate with normal heart sounds 1 and 2. RESPIRATORY: Fair air entry bilaterally with no crackle or rhonchi or use of accessory muscles. GI: Full, soft, nontender, and nondistended with normal bowel sounds. EXTREMITIES: Grossly normal looking, atraumatic with no obvious edema or erythema. 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 Oriented x3 with appropriate mental status. Cranial nerves 2 through 12 are grossly intact. DIAGNOSTIC DATA: CBC showed WBC count of 13.7, hemoglobin of 14.0, platelet of 175. Chemistry showed sodium 125, potassium 4.1, chloride 90, CO2 of 29, BUN 11, creatinine 0.62, glucose 142, calcium 9.7. ASSESSMENT: 1. Hyponatremia: Due to syndrome of inappropriate antidiuretic hormone secretion. Sodium continued to trend down even with fluid restriction. 2. Syndrome of inappropriate antidiuretic hormone secretion: Most likely due to thiazide diuretic as well as brain tumor and surgery. 3. Hypertension: Control is still suboptimal. PLAN: 1. We will continue fluid restriction. 2. We will start salt tablet 1 tablet t.i.d. 3. We will increase the amlodipine to 10 mg daily to get better BP control. 4. We will recheck BMP in the morning. 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 Job ID: [id number]
[2020-03-12 14:56] VITALS: BP 141/60; TEMP 98.3
--- NOTE | 2020-03-13 00:42 | DIS ---
DATE OF ADMISSION: 03/08/2020 DATE OF DISCHARGE: 03/12/2020 PRIMARY CARE PROVIDER: Unknown. DISCHARGE DIAGNOSES: 1. Meningioma. 2. Hyponatremia. CONDITION OF PATIENT ON THE DAY OF DISCHARGE: Stable. I assessed Ms. Kelley on the day of discharge. She denies any chest pain or shortness of breath. Vital signs are stable. S1 and S2 are heard, regular. Lungs are clear to auscultation bilaterally. CONSULTATIONS DURING THIS HOSPITALIZATION: 1. Neurosurgery, Dr. Boyle. 2. Nephrology, Dr. Samano. DISCHARGE MEDICATIONS: 1. Hydrochlorothiazide has been discontinued. 2. Amlodipine started at 10 mg daily. 3. Sodium chloride started at 1 g three times a day to be continued for 1 week, then to reassess. 4. Tylenol No. 3 p.r.n. The rest of her home medications were continued and include: 1. Vitamin C 1000 mg daily. 2. Biotin 7500 mcg daily. 3. Vitamin D3 of 1000 units daily. 4. Cranberry 250 mg daily. 5. Toprol-XL 50 mg daily. 6. Multivitamins one tablet daily. 7. Pravastatin 80 mg at bedtime. HOSPITAL COURSE: Ms. Kelley is a pleasant 84-year-old lady, who was admitted to [facility] on March 08, 2020, for left posterior fossa tumor. Please refer to Dr. Earl's history and physical note dated March 08, 2020, for further details. She was seen by Neurosurgery Service. On March 09, she underwent decompressive suboccipital craniectomy, microsurgical resection of posterior fossa meningioma, dural repair with patch graft to prevent neurologic deterioration. Pathology report showed meningothelial meningioma. She also developed hyponatremia. Hydrochlorothiazide has been discontinued. She was seen by Nephrology Service and has been started on sodium chloride. Nephrology Service will follow up with her at [facility]. She has been accepted for inpatient rehabilitation at [facility]. She is being discharged for the same. On the day of discharge, she has sodium 125, potassium 4.1, creatinine 0.62. White count [id number], hemoglobin 14, and platelet count 175,000. She has been cleared for discharge by consultants services. Many thanks for allowing me to participate in your patient's care. Please feel free to contact me with any questions or concerns. DIET: Heart healthy diet. ACTIVITY: As tolerated. POST-ACUTE CARE FOLLOWUP: With primary care provider in 1 week, with Dr. Samano in 1 week, and with Dr. Boyle in 2 weeks. [facility] TIME SPENT: Total amount of time spent coordinating this discharge: 25 minutes. Job ID: [id number]
== END 2020-03-12 19:40 | DRG 26 ==
LOC: ERS 12:01 → 2SE 19:12 → CCU 03-09 11:15 → 2SE 03-10 12:04
PROVIDERS: ADMIT Internal Medicine; ATTEND Internal Medicine
PROC: 00N00ZZ Release Brain, Open Approach (ICD-10-PCS; principal; 2020-03-08)
PROC: 00U20JZ Supplement Dura Mater with Synthetic Substitute, Open Approach (ICD-10-PCS; 2020-03-08)
PROC: 00B00ZZ Excision of Brain, Open Approach (ICD-10-PCS; 2020-03-08)
DX: D32.9 Benign neoplasm of meninges, unspecified (principal); E22.2 Syndrome of inappropriate secretion of antidiuretic hormone; E87.3 Alkalosis; E83.52 Hypercalcemia; I10 Essential (primary) hypertension; E78.5 Hyperlipidemia, unspecified; E87.5 Hyperkalemia; E86.0 Dehydration; Z90.49 Acquired absence of other specified parts of digestive tract; Z90.710 Acquired absence of both cervix and uterus
CPT/HCPCS: 36415; 36416; 70450; 70553; 71045; 74019; 80048; 80053; 81003; 82550; 83690; 83930; 83935; 84300; 85025; 85027; 85610; 85730; 86850; 86900; 86901; 88307; 88331; 88334; 88341; 88342; 88360; 93005; C9113; J0360; J0690; J1100; J1642; J1885; J1940; J2001; J2250; J2370; J2405; J2704; J2765; J3010; J3370; J3490; S0028

== ENCOUNTER 2020-07-07 10:21 | Outpatient (CLI) | payer MEDICARE ==
[2020-07-07 11:20] LABS: Estimated GFR-MDRD - POC Greater than 90
--- NOTE | 2020-07-07 13:59 | MRI ---
Exam: Brain MRI with and without contrast HISTORY: Follow-up meningioma. Meningioma removal in February 2020 COMPARISON: 03/08/2020 FINDINGS: Gradient echo sequence: Hemosiderin deposition at the resection site along the left occipital region. There is also evidence of hemorrhage and hemosiderin in the left occipital scalp and posterior left neck soft tissues. There is partial resection of the left occiput. Calvarium: Appropriate T1 marrow signal intensity Midline brain parenchyma: Unremarkable Cerebrum:There are postoperative changes in the left cerebellar hemisphere. There is encephalomalacia and gliosis involving the left cerebellar hemisphere. There is enhancing scar tissue involving the parenchyma and overlying dura. There are no intraparenchymal masses. No midline shift. Cerebral corti david colón-white white matter differentiation is preserved. Ventricles: No evidence of hydrocephalus. Sinuses and mastoid air cells: Mild mucosal thickening of the paranasal sinuses. Diffusion: Central arterial flow is maintained. Absent restricted diffusion. Postcontrast images:Enhancing scar tissue at the operative site. No pathologic enhancement of the bra in parenchyma. White matter: There are T2 and FLAIR white matter hyperintensities compatible with chronic small vess el ischemic changes. Additional findings: There is a predominantly T2 hyperintense mass which also exhibits FLAIR hyperint ensity in the sella. Postcontrast images demonstrate predominantly peripheral enhancement with small amounts of linear enhancement. There is buckling of the pituitary stalk. There is no significan t mass effect upon the optic chiasm or prechiasmatic optic nerves. Differential considerations include a 1.2 cm anterior posterior x 1.1 cm craniocaudal x 1.4 cm mediolateral a Rathke's cleft cyst or cystic macroadenoma cannot be entirely excluded. IMPRESSION: 1. Expected postoperative changes involving the left occipital region. No evidence of residual mening ioma. 2. Predominantly cystic, peripherally enhancing lesion centered in the sella. Differential considerat ions include a Rathke's cleft cyst or possibly cystic macroadenoma. CODE T Transcribed Date/Time: 07/07/2020 2:34 PM
== END 2020-07-07 10:22 | disposition home or self-care (01) ==
LOC: BICMRI 10:21
PROVIDERS: ATTEND Neurological Surgery
DX: D32.9 Benign neoplasm of meninges, unspecified (principal)
CPT/HCPCS: 70553; 82565

== ENCOUNTER 2021-01-21 13:41 | Outpatient (CLI) | payer MEDICARE | END 2021-01-21 13:42 | disposition home or self-care (01) | LOC: BICMRI 13:41 → TBSIIMAG 13:42 | PROVIDERS: ATTEND Neurological Surgery | DX: D32.9 Benign neoplasm of meninges, unspecified (principal) | CPT/HCPCS: 70553 ==

== ENCOUNTER 2022-05-09 13:39 | Inpatient (IN) | payer MEDICARE ==
[2022-05-09 15:11] LABS: #Basophils 0.1 thou/uL (0.0-0.2); #Eosinphils 0.2 thou/uL (0.0-0.7); #Lymphocytes 0.7 thou/uL (1.20-3.40); #Monocytes 0.7 thou/uL (0.11-0.59); %Basophils 1.1 % (0.0-1.0); %Eosinophils 3.9 % (0.0-10.0); %Lymphocytes 12.6 % (21.0-51.0); %Monocytes 12.3 % (0.0-10.0); %Neutrophils 70.2 % (42.0-75.0); Mean Corpuscular HGB CONC 34.5 g/dL (32.0-36.0); Mean Corpuscular Hemoglobin 32.5 pg (27.0-31.0); Mean Corpuscular Volume 94.4 fL (78.0-98.0); Mean Platelet Volume 8.3 fL (7.4-10.4); Platelet Count 151 thou/uL (130-400); Red Blood Cell (RBC) Count 4.01 mill/uL (4.20-5.40); White Blood Cell (WBC) Count 5.7 thou/uL (4.8-10.8)
[2022-05-09 15:38] LABS: ALT (SGPT) 13 U/L (8-55); AST (SGOT) 28 U/L (5-34); Albumin 3.7 g/dL (3.4-4.8); Alkaline Phosphatase 50 U/L (40-110); Anion Gap 14 mmol/L (10-20); BUN (Urea Nitrogen) 6 mg/dL (9.8-20.1); Bilirubin, Total 0.7 mg/dL (0.2-1.2); Calc. Creatinine Clearance 0 mL/min (70-130); Calcium 10.1 mg/dL (7.8-10.44); Carbon Dioxide 22 mmol/L (23-31); Chloride 95 mmol/L (98-107); Estimated GFR 84; Globulin 2.2 g/dL (2.4-3.5); Glucose 60 mg/dL (83-110); Potassium 4.1 mmol/L (3.5-5.1); Protein, Total 5.9 g/dL (5.8-8.1); Sodium 127 mmol/L (136-145)
[2022-05-09 15:50] LABS: Bilirubin Negative (Negative); Blood, Urine Negative (Negative); Clarity Clear (Clear); Glucose, Urine (Dipstick) Normal (Negative); Ketone, Urine Greater than 150 mg/dL (Negative); Leukocyte 75 Leu/uL (Negative); Nitrite Negative (Negative); Protein, Urine (Dipstick) 30 mg/dL (Neg-Trace); RBC/HPF 0-3 HPF (0-3); Specific Gravity, Urine 1.021 (1.002-1.036); Squamous Epithelial 0-3 HPF (0-3); Urobilinogen Normal mg/dL (Less than 2)
[2022-05-09 15:52] LABS: Bacteria/HPF 1+ HPF (None Seen)
[2022-05-09 16:37] LABS: SARS-CoV-2 NAA Rapid Test Not Detected (NotDetected)
[2022-05-09 17:13] LABS: Potassium, Urine 57.1 mmol/L
[2022-05-09] MEDS ORDERED: cefTRIAXone\\ROCEPHIN 1 GM VIAL ONE (17:32)
[2022-05-09] MEDS ORDERED: Azithromycin 500 MG VIAL ONE (18:42)
[2022-05-09 19:40] VITALS: BMI 19.9
[2022-05-09] MEDS: Atorvastatin Calcium 20 MG TAB PO SCH (20:08)
[2022-05-09] MEDS: Sodium Chloride 0.9% 1,000 ML IV SCH (20:09)
[2022-05-09 21:43] LABS: Anion Gap 17 mmol/L (10-20); BUN (Urea Nitrogen) 6 mg/dL (9.8-20.1); Calc. Creatinine Clearance 58 mL/min (70-130); Calcium 8.7 mg/dL (7.8-10.44); Carbon Dioxide 19 mmol/L (23-31); Chloride 97 mmol/L (98-107); Estimated GFR 88; Glucose 67 mg/dL (83-110); Potassium 4.1 mmol/L (3.5-5.1); Sodium 129 mmol/L (136-145)
[2022-05-10] MEDS: Sodium Chloride 0.9% 1,000 ML IV SCH ×3 (00:20→08:22)
[2022-05-10 01:42] LABS: Anion Gap 15 mmol/L (10-20); BUN (Urea Nitrogen) 6 mg/dL (9.8-20.1); Calc. Creatinine Clearance 62 mL/min (70-130); Calcium 8.9 mg/dL (7.8-10.44); Carbon Dioxide 18 mmol/L (23-31); Chloride 99 mmol/L (98-107); Estimated GFR 89; Glucose 60 mg/dL (83-110); Potassium 4.2 mmol/L (3.5-5.1); Sodium 128 mmol/L (136-145)
[2022-05-10] MEDS ORDERED: Cosyntropin 250 MCG VIAL SLOW IVP SCH (02:00)
[2022-05-10 06:27] LABS: Anion Gap 16 mmol/L (10-20); BUN (Urea Nitrogen) 5 mg/dL (9.8-20.1); Calc. Creatinine Clearance 68 mL/min (70-130); Calcium 8.7 mg/dL (7.8-10.44); Carbon Dioxide 15 mmol/L (23-31); Chloride 100 mmol/L (98-107); Estimated GFR 91; Potassium 3.6 mmol/L (3.5-5.1); Sodium 127 mmol/L (136-145)
[2022-05-10 06:38] LABS: Glucose 49 mg/dL (83-110)
[2022-05-10] MEDS: Ascorbic Acid 500 mg Chewable Tablet PO SCH (08:21)
[2022-05-10] MEDS: Calcium Carbonate 600 MG TAB PO SCH (08:21)
[2022-05-10] MEDS: Multivitamin W/ Minerals 1 TAB PO SCH (08:21)
[2022-05-10] MEDS: Enoxaparin Sodium 40 MG/0.4 ML SYRINGE SC SCH (08:22)
[2022-05-10] MEDS: Cholecalciferol 1,000 UNITS (25 MCG) TAB PO SCH (08:22)
[2022-05-10] MEDS: Amlodipine 10 MG TAB PO SCH (08:22)
[2022-05-10] MEDS: Ondansetron PF 4 MG/2 ML Vial IVP PRN ×3 (08:22→21:25)
[2022-05-10] MEDS ORDERED: BIOTIN 2500 MCG PO SCH (09:00)
[2022-05-10 09:57] LABS: Free T4 (Free Thyroxine) 0.56 ng/dL (0.70-1.48)
[2022-05-10] MEDS ORDERED: Dextrose 5 % And 0.9 % NaCl 1,000 ML IV SCH (11:15)
[2022-05-10] MEDS ORDERED: Promethazine HCl 12.5 MG in Sodium Chloride 0.9% 50 ML IVPB SCH (12:00)
[2022-05-10] MEDS ORDERED: Dextrose 50% Abboject 50 ML SYRINGE SLOW IVP SCH (13:30)
[2022-05-10] MEDS ORDERED: Promethazine HCl 12.5 MG in Sodium Chloride 0.9% 50 ML IVPB PRN (14:31)
[2022-05-10] MEDS ORDERED: Acetaminophen 325 MG TAB PO PRN (14:31)
[2022-05-10 16:05] LABS: Campy jejuni + coli by PCR Negative (Negative); STEC Shiga Toxin 1+2 Negative (Negative); Salmonella spp. by PCR Negative (Negative); Shigella spp + EIEC by PCR Negative (Negative)
[2022-05-10] MEDS ORDERED: Azithromycin 500 MG in Sodium Chloride 0.9% 250 ML 250 ML IVPB SCH (17:00)
[2022-05-10] MEDS ORDERED: cefTRIAXone\\ROCEPHIN 1 GM in Sodium Chloride 0.9% 100 ML IVPB SCH (17:00)
[2022-05-10] MEDS: Loperamide HCl 1 MG/7.5 ML UDCUP PO PRN (17:26)
[2022-05-10 18:39] LABS: Anion Gap 11 mmol/L (10-20); BUN (Urea Nitrogen) Less than 4 mg/dL (9.8-20.1); Calc. Creatinine Clearance 56 mL/min (70-130); Calcium 8.3 mg/dL (7.8-10.44); Carbon Dioxide 18 mmol/L (23-31); Chloride 98 mmol/L (98-107); Estimated GFR 87; Glucose 186 mg/dL (83-110); Potassium 3.6 mmol/L (3.5-5.1); Sodium 123 mmol/L (136-145)
[2022-05-10] MEDS: Atorvastatin Calcium 20 MG TAB PO SCH (21:24)
[2022-05-10] MEDS: Sodium Chloride 1 GM TAB PO SCH (21:24)
[2022-05-11] MEDS ORDERED: cefTRIAXone\\ROCEPHIN 1 GM in Sodium Chloride 0.9% 100 ML IVPB SCH (02:00)
[2022-05-11] MEDS ORDERED: Fosfomycin 3 GM/Packet PO SCH (02:00)
[2022-05-11] MEDS ORDERED: Nitrofurantoin Monohyd/M-Cryst 100 MG CAP PO SCH (03:15)
[2022-05-11] MEDS ORDERED: Sodium Chloride 0.9% 1,000 ML IV SCH (05:00)
[2022-05-11 05:52] LABS: ALT (SGPT) 10 U/L (8-55); AST (SGOT) 23 U/L (5-34); Albumin 3.1 g/dL (3.4-4.8); Alkaline Phosphatase 45 U/L (40-110); Anion Gap 13 mmol/L (10-20); BUN (Urea Nitrogen) Less than 4 mg/dL (9.8-20.1); Bilirubin, Total 0.4 mg/dL (0.2-1.2); Calc. Creatinine Clearance 55 mL/min (70-130); Calcium 8.6 mg/dL (7.8-10.44); Carbon Dioxide 20 mmol/L (23-31); Chloride 98 mmol/L (98-107); Estimated GFR 87; Globulin 2.3 g/dL (2.4-3.5); Glucose 73 mg/dL (83-110); Potassium 3.7 mmol/L (3.5-5.1); Protein, Total 5.4 g/dL (5.8-8.1); Sodium 127 mmol/L (136-145)
[2022-05-11 06:02] LABS: Band 8 % (5-11); Eosinophils 4 % (0-10); Hemoglobin 12.7 g/dL (12.0-16.0); Lymphocytes 13 % (21-51); MDiff Complete? YES; Mean Corpuscular HGB CONC 35.8 g/dL (32.0-36.0); Mean Corpuscular Hemoglobin 33.8 pg (27.0-31.0); Mean Corpuscular Volume 94.3 fL (78.0-98.0); Mean Platelet Volume 8.3 fL (7.4-10.4); Monocytes 10 % (0-10); Neutrophil 65 % (42-75); Platelet Count 154 thou/uL (130-400); Platelet Morphology Comment Appears Adequate; RBC Morphology Normal; Red Blood Cell (RBC) Count 3.77 mill/uL (4.20-5.40); White Blood Cell (WBC) Count 5.6 thou/uL (4.8-10.8)
[2022-05-11] MEDS: Dextrose 5 % And 0.9 % NaCl 1,000 ML IV SCH ×2 (06:14→17:03)
[2022-05-11] MEDS ORDERED: Sodium Chloride 1 GM TAB PO SCH (06:30)
[2022-05-11] MEDS: Ondansetron PF 4 MG/2 ML Vial IVP PRN ×2 (06:54→13:32)
[2022-05-11] MEDS ORDERED: Cosyntropin 250 MCG VIAL SLOW IVP SCH (07:00)
[2022-05-11] MEDS: Ascorbic Acid 500 mg Chewable Tablet PO SCH (08:30)
[2022-05-11] MEDS: Loperamide HCl 1 MG/7.5 ML UDCUP PO PRN (08:30)
[2022-05-11] MEDS: Sodium Chloride 1 GM TAB PO SCH ×2 (08:31→21:36)
[2022-05-11] MEDS: Cholecalciferol 1,000 UNITS (25 MCG) TAB PO SCH (08:31)
[2022-05-11] MEDS: Calcium Carbonate 600 MG TAB PO SCH (08:31)
[2022-05-11] MEDS: Enoxaparin Sodium 40 MG/0.4 ML SYRINGE SC SCH (08:31)
[2022-05-11] MEDS: Multivitamin W/ Minerals 1 TAB PO SCH (08:31)
[2022-05-11] MEDS: Amlodipine 10 MG TAB PO SCH (08:31)
[2022-05-11] MEDS ORDERED: Hydrocortisone 10 mg Tablet PO SCH (10:45)
[2022-05-11] MEDS ORDERED: Levothyroxine Sodium 50 MCG TAB PO SCH (11:45)
[2022-05-11] MEDS: Hydrocortisone 10 mg Tablet PO SCH ×3 (13:32→21:36)
[2022-05-11 16:12] LABS: Anion Gap 14 mmol/L (10-20); BUN (Urea Nitrogen) Less than 4 mg/dL (9.8-20.1); Calc. Creatinine Clearance 51 mL/min (70-130); Calcium 8.8 mg/dL (7.8-10.44); Carbon Dioxide 19 mmol/L (23-31); Chloride 98 mmol/L (98-107); Estimated GFR 85; Glucose 200 mg/dL (83-110); Potassium 3.9 mmol/L (3.5-5.1); Sodium 127 mmol/L (136-145)
[2022-05-11] MEDS ORDERED: Dextrose 5 % And 0.9 % NaCl 1,000 ML IV SCH (21:06)
[2022-05-11] MEDS: Nitrofurantoin Monohyd/M-Cryst 100 MG CAP PO SCH (21:35)
[2022-05-11] MEDS: Atorvastatin Calcium 20 MG TAB PO SCH (21:35)
[2022-05-12] MEDS: Hydrocortisone 10 mg Tablet PO SCH ×2 (01:26→05:54)
[2022-05-12] MEDS: Levothyroxine Sodium 50 MCG TAB PO SCH (05:54)
[2022-05-12 06:43] LABS: #Lymphocytes 0.6 thou/uL (1.20-3.40); #Monocytes 0.2 thou/uL (0.11-0.59); %Eosinophils 0.7 % (0.0-10.0); %Lymphocytes 8.8 % (21.0-51.0); %Monocytes 3.1 % (0.0-10.0); %Neutrophils 87.4 % (42.0-75.0); Mean Corpuscular HGB CONC 34.6 g/dL (32.0-36.0); Mean Corpuscular Volume 95.2 fL (78.0-98.0); Mean Platelet Volume 8.8 fL (7.4-10.4); Platelet Count 182 thou/uL (130-400); RBC Distribution Width 12.2 % (11.5-14.5); Red Blood Cell (RBC) Count 3.94 mill/uL (4.20-5.40); White Blood Cell (WBC) Count 6.9 thou/uL (4.8-10.8)
[2022-05-12 07:16] LABS: Anion Gap 12 mmol/L (10-20); BUN (Urea Nitrogen) 4 mg/dL (9.8-20.1); Calc. Creatinine Clearance 46 mL/min (70-130); Calcium 9.8 mg/dL (7.8-10.44); Carbon Dioxide 20 mmol/L (23-31); Chloride 105 mmol/L (98-107); Estimated GFR 74; Glucose 214 mg/dL (83-110); Potassium 4.1 mmol/L (3.5-5.1); Sodium 133 mmol/L (136-145)
[2022-05-12] MEDS: Nitrofurantoin Monohyd/M-Cryst 100 MG CAP PO SCH (08:58)
[2022-05-12] MEDS: Ascorbic Acid 500 mg Chewable Tablet PO SCH (08:58)
[2022-05-12] MEDS: Amlodipine 10 MG TAB PO SCH (08:58)
[2022-05-12] MEDS: Calcium Carbonate 600 MG TAB PO SCH (08:58)
[2022-05-12] MEDS: Sodium Chloride 1 GM TAB PO SCH ×2 (08:58→21:58)
[2022-05-12] MEDS: Multivitamin W/ Minerals 1 TAB PO SCH (08:59)
[2022-05-12] MEDS: Cholecalciferol 1,000 UNITS (25 MCG) TAB PO SCH (08:59)
[2022-05-12] MEDS: Enoxaparin Sodium 40 MG/0.4 ML SYRINGE SC SCH (08:59)
[2022-05-12] MEDS: Fludrocortisone Acetate 0.1 MG TAB PO SCH (09:02)
[2022-05-12] MEDS ORDERED: Hydrocortisone 10 mg Tablet PO SCH ×2 (12:00→15:00)
[2022-05-12] MEDS: AMOXicillin 250 MG CAP PO SCH ×2 (15:15→21:58)
[2022-05-12] MEDS: Atorvastatin Calcium 20 MG TAB PO SCH (21:58)
[2022-05-13] MEDS: Levothyroxine Sodium 50 MCG TAB PO SCH (05:36)
[2022-05-13 07:04] LABS: #Eosinphils 0.1 thou/uL (0.0-0.7); #Lymphocytes 1.3 thou/uL (1.20-3.40); #Monocytes 0.9 thou/uL (0.11-0.59); #Neutrophils 11.5 thou/uL (1.40-6.50); %Basophils 0.2 % (0.0-1.0); %Eosinophils 0.7 % (0.0-10.0); %Lymphocytes 9.7 % (21.0-51.0); %Monocytes 6.7 % (0.0-10.0); %Neutrophils 82.7 % (42.0-75.0); Hemoglobin 11.7 g/dL (12.0-16.0); Mean Corpuscular Hemoglobin 33.7 pg (27.0-31.0); Mean Corpuscular Volume 96.2 fL (78.0-98.0); Mean Platelet Volume 8.8 fL (7.4-10.4); Platelet Count 228 thou/uL (130-400); RBC Distribution Width 12.4 % (11.5-14.5); Red Blood Cell (RBC) Count 3.48 mill/uL (4.20-5.40); White Blood Cell (WBC) Count 13.9 thou/uL (4.8-10.8)
[2022-05-13 07:27] LABS: Anion Gap 12 mmol/L (10-20); BUN (Urea Nitrogen) 9 mg/dL (9.8-20.1); Calc. Creatinine Clearance 64 mL/min (70-130); Calcium 9.6 mg/dL (7.8-10.44); Carbon Dioxide 23 mmol/L (23-31); Chloride 109 mmol/L (98-107); Estimated GFR 87; Glucose 94 mg/dL (83-110); Potassium 3.5 mmol/L (3.5-5.1); Sodium 140 mmol/L (136-145)
[2022-05-13] MEDS: Ascorbic Acid 500 mg Chewable Tablet PO SCH (08:28)
[2022-05-13] MEDS: Hydrocortisone 10 mg Tablet PO SCH (08:28)
[2022-05-13] MEDS: Fludrocortisone Acetate 0.1 MG TAB PO SCH (08:29)
[2022-05-13] MEDS: Enoxaparin Sodium 40 MG/0.4 ML SYRINGE SC SCH (08:29)
[2022-05-13] MEDS: Cholecalciferol 1,000 UNITS (25 MCG) TAB PO SCH (08:29)
[2022-05-13] MEDS: AMOXicillin 250 MG CAP PO SCH ×3 (08:29→20:42)
[2022-05-13] MEDS: Multivitamin W/ Minerals 1 TAB PO SCH (08:29)
[2022-05-13] MEDS: Calcium Carbonate 600 MG TAB PO SCH (08:29)
[2022-05-13] MEDS: Sodium Chloride 1 GM TAB PO SCH (08:32)
[2022-05-13] MEDS ORDERED: Hydrocortisone 10 mg Tablet PO SCH ×2 (12:00→20:00)
[2022-05-13] MEDS ORDERED: Calcium Carbonate 500 MG ChewTAB PO PRN (12:05)
[2022-05-13] MEDS: Atorvastatin Calcium 20 MG TAB PO SCH (20:42)
[2022-05-14] MEDS: Levothyroxine Sodium 50 MCG TAB PO SCH (05:35)
[2022-05-14 07:02] LABS: #Basophils 0.1 thou/uL (0.0-0.2); #Eosinphils 0.5 thou/uL (0.0-0.7); #Lymphocytes 1.5 thou/uL (1.20-3.40); #Monocytes 0.7 thou/uL (0.11-0.59); #Neutrophils 8.4 thou/uL (1.40-6.50); %Basophils 0.5 % (0.0-1.0); %Eosinophils 4.5 % (0.0-10.0); %Lymphocytes 13.1 % (21.0-51.0); %Neutrophils 75.9 % (42.0-75.0); Hemoglobin 11.1 g/dL (12.0-16.0); Mean Corpuscular HGB CONC 33.8 g/dL (32.0-36.0); Mean Corpuscular Hemoglobin 32.6 pg (27.0-31.0); Mean Corpuscular Volume 96.5 fL (78.0-98.0); Mean Platelet Volume 8.2 fL (7.4-10.4); Platelet Count 218 thou/uL (130-400); RBC Distribution Width 12.6 % (11.5-14.5); White Blood Cell (WBC) Count 11.1 thou/uL (4.8-10.8)
[2022-05-14 07:24] LABS: Anion Gap 12 mmol/L (10-20); BUN (Urea Nitrogen) 11 mg/dL (9.8-20.1); Calc. Creatinine Clearance 64 mL/min (70-130); Calcium 9.3 mg/dL (7.8-10.44); Carbon Dioxide 27 mmol/L (23-31); Chloride 104 mmol/L (98-107); Estimated GFR 87; Glucose 82 mg/dL (83-110); Potassium 3.6 mmol/L (3.5-5.1); Sodium 139 mmol/L (136-145)
[2022-05-14] MEDS: Enoxaparin Sodium 40 MG/0.4 ML SYRINGE SC SCH (09:24)
[2022-05-14] MEDS: Calcium Carbonate 600 MG TAB PO SCH (09:25)
[2022-05-14] MEDS: Fludrocortisone Acetate 0.1 MG TAB PO SCH (09:25)
[2022-05-14] MEDS: Hydrocortisone 10 mg Tablet PO SCH (09:25)
[2022-05-14] MEDS: Cholecalciferol 1,000 UNITS (25 MCG) TAB PO SCH (09:25)
[2022-05-14] MEDS: Multivitamin W/ Minerals 1 TAB PO SCH (09:25)
[2022-05-14] MEDS ORDERED: Hydrocortisone 10 mg Tablet PO SCH (12:00)
[2022-05-14] MEDS: Atorvastatin Calcium 20 MG TAB PO SCH (20:09)
[2022-05-15] MEDS: Levothyroxine Sodium 50 MCG TAB PO SCH (05:54)
[2022-05-15 06:31] LABS: #Basophils 0.1 thou/uL (0.0-0.2); #Eosinphils 0.5 thou/uL (0.0-0.7); #Lymphocytes 1.5 thou/uL (1.20-3.40); #Monocytes 0.6 thou/uL (0.11-0.59); #Neutrophils 6.1 thou/uL (1.40-6.50); %Basophils 0.9 % (0.0-1.0); %Eosinophils 5.2 % (0.0-10.0); %Lymphocytes 16.7 % (21.0-51.0); %Monocytes 6.9 % (0.0-10.0); %Neutrophils 70.3 % (42.0-75.0); Hemoglobin 11.2 g/dL (12.0-16.0); Mean Corpuscular HGB CONC 34.4 g/dL (32.0-36.0); Mean Corpuscular Hemoglobin 33.3 pg (27.0-31.0); Mean Corpuscular Volume 96.9 fL (78.0-98.0); Platelet Count 213 thou/uL (130-400); RBC Distribution Width 12.6 % (11.5-14.5); Red Blood Cell (RBC) Count 3.37 mill/uL (4.20-5.40); White Blood Cell (WBC) Count 8.7 thou/uL (4.8-10.8)
[2022-05-15 06:53] LABS: Anion Gap 13 mmol/L (10-20); BUN (Urea Nitrogen) 11 mg/dL (9.8-20.1); Calc. Creatinine Clearance 63 mL/min (70-130); Calcium 9.3 mg/dL (7.8-10.44); Carbon Dioxide 28 mmol/L (23-31); Chloride 104 mmol/L (98-107); Estimated GFR 87; Glucose 84 mg/dL (83-110); Potassium 3.6 mmol/L (3.5-5.1); Sodium 141 mmol/L (136-145)
[2022-05-15] MEDS: Cholecalciferol 1,000 UNITS (25 MCG) TAB PO SCH (08:14)
[2022-05-15] MEDS: Hydrocortisone 10 mg Tablet PO SCH (08:15)
[2022-05-15] MEDS: Multivitamin W/ Minerals 1 TAB PO SCH (08:15)
[2022-05-15] MEDS: Enoxaparin Sodium 40 MG/0.4 ML SYRINGE SC SCH (08:15)
[2022-05-15] MEDS: Calcium Carbonate 600 MG TAB PO SCH (08:18)
[2022-05-15] MEDS ORDERED: Hydrocortisone 10 mg Tablet PO SCH ×2 (10:00→12:00)
[2022-05-15 12:20] VITALS: BP 130/66; TEMP 97
[2022-05-16] MEDS ORDERED: Hydrocortisone 10 mg Tablet PO SCH (08:00)
== END 2022-05-15 12:24 | disposition home health service (06) | DRG 643 ==
LOC: ERS 13:39 → ERHOLD 16:58 → T4-A 19:29
PROVIDERS: ADMIT Student in an Organized Health Care Education/Training Program; ATTEND Student in an Organized Health Care Education/Training Program
DX: E27.40 Unspecified adrenocortical insufficiency (principal); J15.9 Unspecified bacterial pneumonia; N39.0 Urinary tract infection, site not specified; E87.1 Hypo-osmolality and hyponatremia; Z66 Do not resuscitate; E86.0 Dehydration; Z20.822 Contact with and (suspected) exposure to COVID-19; E21.3 Hyperparathyroidism, unspecified; E78.5 Hyperlipidemia, unspecified; M81.0 Age-related osteoporosis without current pathological fracture; Z90.710 Acquired absence of both cervix and uterus; Z90.49 Acquired absence of other specified parts of digestive tract; Z79.899 Other long term (current) drug therapy; Z85.43 Personal history of malignant neoplasm of ovary
CPT/HCPCS: 36415; 36416; 71045; 80048; 80053; 80400; 81003; 81015; 82024; 82436; 83630; 83690; 83735; 83930; 83935; 84133; 84145; 84300; 84439; 84443; 84481; 84484; 85025; 87077; 87086; 87186; 87324; 87328; 87329; 87449; 87505; 93005; 96374; 96375; J0456; J0696; J1650; J2405; J2550; J3490; J7042; J7050; J7999; U0002

== ENCOUNTER 2024-10-21 09:09 | Outpatient (CLI) | payer MEDICARE | END 2024-10-21 09:10 | disposition home or self-care (01) | LOC: SCSMRI 09:09 | PROVIDERS: ATTEND Family Medicine | DX: R51.9 Headache, unspecified (principal); I67.82 Cerebral ischemia; G93.89 Other specified disorders of brain | CPT/HCPCS: 36415; 70553; 76376; 82565 ==

== ENCOUNTER 2024-11-03 21:03 | Emergency (ER) | payer MEDICARE ==
[~2024-11-03 21:03] MED LIST: Iopamidol-370 76% 500 ML MDV (1 ML CHARGE) ONE
[2024-11-03 23:18] LABS: #Basophils 0.08 10x3/uL (0.0-0.2); %Basophils 0.7 % (0.0-1.0); %Eosinophils 1.5 % (0.0-10.0); %Monocytes 6.6 % (0.0-10.0); %Neutrophils 79.4 % (42.0-75.0); Hematocrit 41.1 % (36.0-47.0); Hemoglobin 14.3 g/dL (12.0-16.0); Mean Corpuscular HGB CONC 34.8 g/dL (32.0-36.0); Mean Corpuscular Hemoglobin 32.4 pg (27.0-31.0); Mean Platelet Volume 11.3 fL (7.4-10.4); Platelet Count 197 10x3/uL (130-400); Red Blood Cell (RBC) Count 4.42 mill/uL (4.20-5.40)
[2024-11-03 23:33] LABS: PTT 28.2 sec (22.9-36.1)
[2024-11-03 23:42] LABS: ALT (SGPT) 18 U/L (Less than 34); AST (SGOT) 28 U/L (11-34); Albumin 4.1 g/dL (3.1-4.5); Alkaline Phosphatase 111 U/L (40-110); Anion Gap 15 mmol/L (10-20); BUN (Urea Nitrogen) 12 mg/dL (9.8-20.1); Bilirubin, Total 0.7 mg/dL (0.3-1.2); Calc. Creatinine Clearance 0 mL/min (70-130); Calcium 10.5 mg/dL (7.8-10.44); Carbon Dioxide 24 mmol/L (23-31); Chloride 105 mmol/L (98-107); Estimated GFR 71; Globulin 3.3 g/dL (2.4-3.5); Glucose 135 mg/dL (83-110); Potassium 4.2 mmol/L (3.5-5.1); Protein, Total 7.4 g/dL (5.8-8.1); Sodium 140 mmol/L (136-145)
== END 2024-11-04 02:20 | disposition home or self-care (01) ==
LOC: ERS 21:03
DX: S22.41XA Multiple fractures of ribs, right side, initial encounter for closed fracture (principal); I10 Essential (primary) hypertension; W19.XXXA Unspecified fall, initial encounter
CPT/HCPCS: 36415; 71045; 71260; 74177; 80053; 85025; 85610; 85730; 93005; Q9967